=== PATIENT | female | born 1975 | race African-American/Black ===

== ENCOUNTER → 2017-02-28 | Day surgery (SDC) | payer OTHER ==
[~2017-02-28] MED LIST: OMEPRAZOLE20 M1 PO
--- NOTE | ~2017-02-28 | OR ---
Unit #: [id number] #: [id number] Patient: ISABEL SARAVIA [id number] [address] [address] [id number] O MR#: [id number] NAME: ISABEL SARAVIA ROOM: Date of Procedure: 02/28/2017 Admission Date: 02/28/2017 Surgeon: Sathya Elizabeth M.D. : 1975 Attending Physician: Sathya Elizabeth M.D. OPERATIVE REPORT PROCEDURE PERFORMED Esophagogastroduodenoscopy with biopsies. INDICATIONS FOR PROCEDURE The patient with significant upper abdominal pain, GERD symptoms, undergoing evaluation with upper endoscopy. MEDICATIONS Monitored anesthesia. POSTOPERATIVE FINDINGS 1. Small hiatal hernia. 2. Mild gastritis. Biopsies taken. 3. Normal duodenum and distal duodenum. PLAN Continue PPI therapy and symptomatic treatment for now. DESCRIPTION OF PROCEDURE The patient was explained of the procedure, risks, and benefits along with risks and benefits of anesthesia. She was brought to the endoscopy room. Propofol anesthesia was given. Bite block was placed. The scope was passed down the mouth and esophagus, stomach, duodenum and distal duodenum. Findings as described. Biopsies were taken. Gently, I pulled it out of the patient's mouth. She tolerated it well. Dictated by... Dain Almanza/irving TD: 02/28/2017 22:58 JOB #: [id number] Unit #: [id number] #: [id number] Patient: ISABEL SARAVIA OPERATIVE REPORT Page 1 of 1 X Sathya Elizabeth MD X PROCEDURE OPERATIVE NOTE
[2017-02-28 09:45] LABS: BASOPHIL% 0.5 % (0-2.5); EOSINOPHIL# 0.4 X10e3 (0-0.7); EOSINOPHIL% 5.3 % (0.0-7.0); HEMATOCRIT 38.6 % (35.0-45.0); HEMOGLOBIN 12.4 gm/dL (12.0-16.0); LYMPHOCYTE# 2.3 X10e3 (1.0-3.5); MEAN CELL VOLUME 91.8 FL (83-96); MEAN CORPUSCULAR HEMOGLOBIN 29.5 PG (28-34); MEAN CORPUSCULAR HGB CONC 32.2 g/dL (30-36); MEAN PLATELET VOLUME 8.2 FL (6.5-11.5); MONOCYTE# 0.3 X10e3 (0-1.0); MONOCYTE% 4.8 % (3.0-12.0); NEUTROPHIL# 3.7 X10e3 (1.5-7.1); NEUTROPHIL% 55.4 % (40-75); PLATELET COUNT 262 X10e3 (140-420); RED CELL DISTRIBUTION WIDTH 14.5 % (11.0-15.5); WHITE BLOOD COUNT 6.8 X10e3 (4.0-10.5)
[2017-02-28 09:55] LABS: DIFF IND NO
[2017-02-28 10:35] LABS: ALBUMIN SERUM 4.5 g/dL (3.5-5.0); BILIRUBIN,TOTAL 0.5 mg/dL (0.2-2.0); CALCIUM SERUM 9.3 mg/dL (8.4-10.2); CREATININE SERUM 0.6 mg/dL (0.6-1.4); GLOM FILT RATE Estimated 130.3 mL/min (>60); POTASSIUM 4.1 mmol/L (3.5-5.1); PROTEIN TOTAL SERUM 6.8 g/dL (6.0-8.3)
== END | disposition home or self-care (01) ==
LOC: COPS 06:48
PROVIDERS: Internal Medicine
DX: K44.9 Diaphragmatic hernia without obstruction or gangrene (principal); K29.50 Unspecified chronic gastritis without bleeding; K21.9 Gastro-esophageal reflux disease without esophagitis; F17.200 Nicotine dependence, unspecified, uncomplicated; Z87.442 Personal history of urinary calculi
CPT/HCPCS: 80053; 85025; 88305; 88312; J2250